=== PATIENT | female | born 1945 | race Caucasian/White ===

== ENCOUNTER 2016-09-27 10:14 | Inpatient (IN) ==
[2016-09-21 14:13] LABS: HEMATOCRIT 37.6 % (37.0-47.0); HEMOGLOBIN 12.2 g/dL (12.0-16.0); MCH 28.4 PG (27-31); MCHC 32.4 g/dL (33-37); MCV 87.6 FL (81-99); MPV 8.7 FL (7.4-10.4); RBC 4.29 XMIL (4.2-5.4)
[2016-09-21 14:43] LABS: AGAP 11; BUN 10 mg/dL (8-22); CALCIUM 9.3 mg/dL (8.8-10.2); CHLORIDE 101 mmol/L (98-107); COSMO 286; POTASSIUM 4.1 mmol/L (3.5-5.1); SODIUM 144 mmol/L (136-145); TCO2 32 mmol/L (25-35)
--- NOTE | 2016-09-21 15:44 | EKG Report ---
Test Performed on : 09/21/2016 1:53:55 PM Test Reason : PAT Blood Pressure : / mmHG Vent. Rate : 079 BPM Atrial Rate : 079 BPM P-R Int : 134 ms QRS Dur : 088 ms QT Int : 410 ms P-R-T Axes : 074 061 040 degrees QTc Int : 470 ms Normal sinus rhythm. Nonspecific ST and T wave abnormality Abnormal ECG No previous ECGs available Confirmed by Vishnu CALDERÓN, Eleazar Dye ([id number]) on 09/22/2016 9:14:11 AM
[2016-09-27] MEDS ORDERED: PEPCID ONE (11:06)
[2016-09-27] MEDS ORDERED: LR 1,000 ML ONE ×2 (11:06→15:54)
[2016-09-27] MEDS ORDERED: KEFZOL 1 GM/D5W 1 GM/50 ML IVPB ONE (11:06)
[2016-09-27] MEDS ORDERED: HEPARIN ONE ×3 (12:06→13:38)
[2016-09-27] MEDS ORDERED: KEFZOL ONE (12:06)
[2016-09-27] MEDS ORDERED: NS 2,000 ML ONE (12:07)
[2016-09-27] MEDS ORDERED: MARCAINE 0.25% PF/EPI 1:200,000 ONE (12:08)
[2016-09-27] MEDS ORDERED: QUELICIN (DOSE) ONE (12:19)
[2016-09-27] MEDS ORDERED: XYLOCAINE-MPF 2% ONE (12:19)
[2016-09-27] MEDS ORDERED: ZEMURON ONE (13:21)
[2016-09-27] MEDS ORDERED: EPHEDRINE ONE (14:02)
[2016-09-27] MEDS ORDERED: ROBINUL ONE (14:18)
[2016-09-27] MEDS ORDERED: NEOSTIGMINE ONE (14:21)
[2016-09-27] MEDS ORDERED: ZOFRAN ONE (14:22)
[2016-09-27] MEDS ORDERED: NS 1,000 ML ONE (14:55)
[2016-09-27] MEDS ORDERED: PROTAMINE SULFATE ONE (15:06)
--- NOTE | 2016-09-27 15:29 | OPERATIVE NOTE ---
PROCEDURE DATE: 09/27/2016 DATE OF SURGERY: 09/27/2016. PROCEDURE PERFORMED: Right femoral artery access with ultrasound guidance; left superficial femoral artery atherectomy with an H1 LS turbo hawk catheter (3 sites). SURGEON: Fermín Bautista MD. SORT OPERATIONS SUPERVISOR: THO Foster. PREOPERATIVE DIAGNOSIS: Left SFA serial stenoses with claudication. POSTOPERATIVE DIAGNOSIS: Left SFA serial stenoses with claudication. FINDINGS: There were 3 different sites of stenosis due to calcific plaque in the proximal SFA. The popliteal appeared to have adequate lumen and there was runoff trifurcation vessels. DESCRIPTION OF PROCEDURE: Satisfactory general anesthesia was achieved. Both groins and the left leg were prepped and draped in a sterile fashion. We imaged the right groin and identified the common femoral artery, accessed it with a Seldinger technique, passed the wire, followed by a 7- Turkish sheath. We then passed a Glidewire into the aorta, followed by Contra 2 catheter. We then engaged the left iliac, passed the guidewire down the left iliac. We then switched from a short 7 to a 45 cm 7-Turkish sheath. We first used the Glidewire, switched over to an Amplatz wire and then was eventually able to advance the 45 cm sheath to within 5 cm of the end. We shot an arteriogram revealing significant plaque at the takeoff of the SFA plaque, a few cm distal to this and one in the midthigh. The distal SFA and the popliteal appeared to have adequate lumen. We were able to switch then to a long stiff Glidewire. We were able to engage the SFA and pass the Glidewire down into the popliteal. We switched this to an 0.014 wire after using a long 5-Turkish catheter. We switched to the 0.014 Nitrex wire. We then used an H1 LS turbo hawk catheter and treated the most proximal stenosis right at the takeoff of the SFA. We treated it anterior, posterior and medial. We then treated the next stenosis a few centimeters distal to this the same way, anterior, posterior and medial, and then finally the last spot in the midthigh in all 4 quadrants. We went back and treated each one in addition, and then a completion arteriogram revealing improvement in each spot. We did shoot a completion arteriogram showing runoff down the runoff vessels past the knee into the trifurcation vessels. We then replaced the 0.014 wire with a 5-Turkish catheter followed by the long Glidewire. We removed the 45 cm sheath , then switched to a short 7, and then used a Mynx closure device to plug the hole. We did hold pressure until hemostasis was achieved. She has tolerated procedure satisfactorily. I failed to mention that 10,000 units of heparin were given during the procedure. The patient lost about 100 mL of blood. There was 105 mL of contrast used during the procedure. cc: Fermín Bautista MD MTDD
[2016-09-27] MEDS: MORPHINE ONE ×3 (15:44→15:55)
[2016-09-27] MEDS ORDERED: NS 1,000 ML IV SCH (17:05)
[2016-09-27] MEDS ORDERED: ZOFRAN IV PRN (17:05)
[2016-09-27 17:23] LABS: URINE MICRO REVIEW NEEDED? NO; URINE SOURCE CATH
[2016-09-27 17:43] LABS: BILIRUBIN URINE NEGATIVE (NEGATIVE); BLOOD URINE NEGATIVE (NEGATIVE); COLOR YELLOW; GLUCOSE URINE NEGATIVE (NEGATIVE); LEUKOCYTES URINE TRACE (NEGATIVE); NITRITE URINE POSITIVE (NEGATIVE); PH URINE 7.5; PROTEIN URINE TRACE mg/dL (NEGATIVE); TURBIDITY URINE CLEAR (CLEAR); UR EPITHELIAL CELLS <10 /HPF (<10); URINE BACTERIA 4+ /HPF; URINE RBC <10 /HPF (<10); URINE WBC <10 /HPF (<10); UROBILINOGEN URINE NORMAL (NORMAL)
[2016-09-27] MEDS: NEURONTIN PO SCH ×2 (18:11→20:01)
[2016-09-27] MEDS: FLEXERIL PO SCH (18:11)
[2016-09-27] MEDS: DESYREL PO SCH ×2 (20:01→22:07)
[2016-09-27] MEDS: PERIDEX MT SCH (20:01)
[2016-09-27] MEDS: NORCO-7.5 PO PRN (20:01)
[2016-09-27] MEDS: ZOCOR PO SCH (20:02)
[2016-09-27] MEDS: KLONOPIN PO SCH ×2 (20:02→22:07)
[2016-09-27] MEDS: BUPRENEX IV PRN (22:09)
[2016-09-28] MEDS: NORCO-7.5 PO PRN ×4 (00:36→20:02)
[2016-09-28] MEDS: PRILOSEC PO SCH (06:36)
[2016-09-28] MEDS ORDERED: FENTANYL ONE (07:09)
[2016-09-28] MEDS ORDERED: DIPRIVAN 1% ONE (07:09)
[2016-09-28] MEDS: ASPIRIN EC PO SCH ×2 (07:31→10:25)
[2016-09-28] MEDS: PERIDEX MT SCH ×3 (07:31→22:27)
[2016-09-28] MEDS: TOPROL XL PO SCH ×2 (07:32→10:26)
[2016-09-28] MEDS: GLUCOTROL PO SCH (07:32)
[2016-09-28] MEDS: NEURONTIN PO SCH ×5 (07:32→22:27)
[2016-09-28] MEDS: FLEXERIL PO SCH ×4 (07:32→18:10)
[2016-09-28] MEDS: ZOLOFT PO SCH ×2 (07:33→10:26)
[2016-09-28] MEDS: COZAAR PO SCH ×2 (07:33→10:27)
[2016-09-28] MEDS: LASIX PO SCH ×2 (07:33→10:26)
[2016-09-28] MEDS: BUPRENEX IV PRN ×2 (07:39→13:15)
[2016-09-28] MEDS: WELLBUTRIN SR PO SCH ×2 (07:40→10:25)
[2016-09-28 08:56] LABS: MANUAL DIFF NEEDED? NO
[2016-09-28 09:01] LABS: BASO% 0.2 % (0.0-0.8); EOS# 0.12 X1000 (0.0-0.7); HEMATOCRIT 33.7 % (37.0-47.0); HEMOGLOBIN 10.5 g/dL (12.0-16.0); IMM GRAN# 0.02 X1000 (0.0-0.04); IMM GRAN% 0.2 % (0.0-0.5); LYMPH# 2.65 X1000 (1.2-3.4); LYMPH% 21.4 % (20.5-51.1); MCH 28.7 PG (27-31); MCHC 31.2 g/dL (33-37); MCV 92.1 FL (81-99); MONO# 0.82 X1000 (0.11-0.59); MONO% 6.6 % (1.7-9.3); NEUT% 70.6 % (42.2-75.2); PLT 306 X1000 (130-400); RBC 3.66 XMIL (4.2-5.4)
[2016-09-28 09:17] LABS: AGAP 3; BUN 11 mg/dL (8-22); CALCIUM 8.6 mg/dL (8.8-10.2); CHLORIDE 102 mmol/L (98-107); COSMO 283; POTASSIUM 4.3 mmol/L (3.5-5.1); SODIUM 141 mmol/L (136-145); TCO2 36 mmol/L (25-35)
[2016-09-28] MEDS: KLONOPIN PO SCH ×2 (10:38→22:28)
[2016-09-28] MEDS: NS 1,000 ML IV SCH (16:07)
[2016-09-28] MEDS: DESYREL PO SCH (22:27)
[2016-09-28] MEDS: ZOCOR PO SCH (22:27)
[2016-09-29 06:01] LABS: MANUAL DIFF NEEDED? NO
[2016-09-29] MEDS: PRILOSEC PO SCH (06:22)
[2016-09-29] MEDS: NORCO-7.5 PO PRN (06:22)
[2016-09-29 06:23] LABS: BASO% 0.3 % (0.0-0.8); EOS# 0.12 X1000 (0.0-0.7); EOS% 1.1 % (0.0-10.0); HEMATOCRIT 31.4 % (37.0-47.0); HEMOGLOBIN 9.5 g/dL (12.0-16.0); IMM GRAN# 0.02 X1000 (0.0-0.04); IMM GRAN% 0.2 % (0.0-0.5); LYMPH# 1.97 X1000 (1.2-3.4); LYMPH% 17.7 % (20.5-51.1); MCH 28.3 PG (27-31); MCHC 30.3 g/dL (33-37); MCV 93.5 FL (81-99); MONO# 0.78 X1000 (0.11-0.59); MPV 9.3 FL (7.4-10.4); NEUT% 73.7 % (42.2-75.2); PLT 264 X1000 (130-400); RBC 3.36 XMIL (4.2-5.4)
[2016-09-29] MEDS ORDERED: KEFZOL 1 GM/D5W 1 GM/50 ML IVPB IV ONE (09:35)
[2016-09-29] MEDS: ZOLOFT PO SCH (10:30)
[2016-09-29] MEDS: KLONOPIN PO SCH ×2 (10:30→22:59)
[2016-09-29] MEDS: ASPIRIN EC PO SCH (10:30)
[2016-09-29] MEDS: COZAAR PO SCH (10:30)
[2016-09-29] MEDS: FLEXERIL PO SCH ×4 (10:30→18:16)
[2016-09-29] MEDS: GLUCOTROL PO SCH (10:30)
[2016-09-29] MEDS: TOPROL XL PO SCH (10:31)
[2016-09-29] MEDS: LASIX PO SCH (10:31)
[2016-09-29] MEDS: PERIDEX MT SCH ×2 (10:31→22:59)
[2016-09-29] MEDS: WELLBUTRIN SR PO SCH (10:31)
[2016-09-29] MEDS: NEURONTIN PO SCH ×5 (10:31→22:59)
--- NOTE | 2016-09-29 10:57 | Diag Imaging Result Doc PS360 ---
ANGIOGRAM/AORTA W/RUNOFF - 09/29/2016 INDICATION: right foot ischemia TECHNIQUE: Axial CT images were obtained after administering intravenous contrast. Three-dimensional angiographic images were generated. A CT dose reduction protocol was used. COMPARISON: 08/31/2016 FINDINGS: There is soft tissue edema over the right groin compatible with recent arterial access and seizure. There is complete occlusion of the mid right external iliac artery. The deep femoral artery is patent. There is complete occlusion of the entire superficial femoral artery. The popliteal artery and distal arteries reconstitute at the level of the abductor foramen. Presumably from deep femoral artery branches. IMPRESSION: Complete occlusions of the mid right external iliac artery and the entire right superficial femoral artery. Electronically signed by Vasile Maxwell 09/29/2016 10:55 AM
[2016-09-29] MEDS ORDERED: HEPARIN ONE ×2 (12:09→13:10)
[2016-09-29] MEDS ORDERED: NS 1,000 ML ONE (12:09)
[2016-09-29] MEDS ORDERED: XYLOCAINE-MPF 2% ONE ×2 (12:11)
[2016-09-29] MEDS ORDERED: DIPRIVAN 1% ONE (12:11)
[2016-09-29] MEDS ORDERED: QUELICIN (DOSE) ONE (12:16)
[2016-09-29] MEDS ORDERED: ZEMURON ONE (12:16)
[2016-09-29] MEDS ORDERED: DECADRON ONE (13:11)
[2016-09-29] MEDS ORDERED: ZOFRAN ONE (13:11)
[2016-09-29] MEDS ORDERED: KEFZOL ONE (13:43)
[2016-09-29] MEDS ORDERED: NS 500 ML ONE (13:43)
[2016-09-29] MEDS ORDERED: NEOSTIGMINE ONE (13:55)
[2016-09-29] MEDS ORDERED: ROBINUL ONE (13:56)
[2016-09-29 14:36] LABS: URINE MICRO REVIEW NEEDED? NO; URINE SOURCE CATH
[2016-09-29 14:40] LABS: BILIRUBIN URINE NEGATIVE (NEGATIVE); BLOOD URINE NEGATIVE (NEGATIVE); COLOR YELLOW; GLUCOSE URINE NEGATIVE (NEGATIVE); LEUKOCYTES URINE NEGATIVE (NEGATIVE); NITRITE URINE NEGATIVE (NEGATIVE); PROTEIN URINE TRACE mg/dL (NEGATIVE); TURBIDITY URINE CLEAR (CLEAR); UROBILINOGEN URINE NORMAL (NORMAL)
[2016-09-29] MEDS: MORPHINE ONE ×3 (14:40→14:49)
[2016-09-29 14:41] LABS: UR EPITHELIAL CELLS <10 /HPF (<10); URINE BACTERIA NEGATIVE /HPF; URINE RBC <10 /HPF (<10); URINE WBC <10 /HPF (<10)
[2016-09-29 14:43] LABS: SP GRAVITY URINE > 1.050
[2016-09-29] MEDS ORDERED: LMX 5 CREAM TOP PRN (15:07)
--- NOTE | 2016-09-29 15:19 | OPERATIVE NOTE ---
PROCEDURE DATE: 09/29/2016 PROCEDURES: 1. Right femoral artery thrombectomy. 2. Right external iliac artery thrombectomy. 3. Right common femoral endarterectomy. 4. Open right common iliac balloon angioplasty using an 8 x 4 balloon. 5. Right external iliac balloon angioplasty using an 8 x 4 balloon. SURGEON: Fermín Bautista MD. ORTHOPEDIC SPECIALIST: Jenae. PREOPERATIVE DIAGNOSIS: Right femoral and external iliac thrombosis. POSTOPERATIVE DIAGNOSIS: Right femoral and external iliac thrombosis, with right external iliac stenosis, right common femoral stenosis, and right superficial femoral artery occlusion. INDICATIONS: A 71-year-old, who had undergone a left leg atherectomy via a right femoral approach 2 days ago. She has developed pain and numbness in her foot and CTA shows thrombosis of her right external and common femoral arteries. DESCRIPTION OF PROCEDURE: Satisfactory general endotracheal anesthesia was achieved. The left groin, right groin, and right leg were prepped and draped in a sterile fashion. We made a vertical incision in the right groin, dissected down to the common femoral artery. We surrounded the SFA with a vessel loop, the deep femoral with a vessel loop, the common femoral with a vessel loop. Significant plaque was noted within the common femoral. The puncture site was noted in the superficial femoral. We gave the patient 10,000 units of heparin systemically. We felt a pulse in the common femoral. We clamped off the common femoral. It was difficult to clamp because of the posterior plaque. We incised the superficial femoral using the Stein scissors through the puncture site. There was some clot present. We extended it proximally and distally. We passed a 4 Mariaelena distally and it only went for about 10 cm and then stopped due to occlusion. We removed what clot was present. We removed the clot from the orifice of the deep femoral and good back bleeding was present. We passed the Mariaelena proximally and it would only go for about what seemed to be 20-25 cm and then stopped, and we removed what clot was present. The flow was not very vigorous. We then proceeded to do a femoral endarterectomy all the way up to the inguinal ligament. We could pass a 3 and a 4 dilator into the profunda and got good back bleeding. We then obtained a 7-Bahraini sheath and passed it into the artery. We shot a retrograde arteriogram. There appeared to be a stenosis in the external iliac artery. The common iliac appeared to be patent but the stent was present there and I could not tell for sure whether that was an issue or a problem. The guidewire went through that area and we decided to balloon it. We chose an 8 x 4 balloon, passed it up the common iliac and ballooned it for a minute. We pulled our sheath back and again ballooned the external iliac to improve the stenosis in the external iliac. This improved the flow but still it did not seem as vigorous as we would like. We obtained a 1 x 6 bovine patch and we then patched the site of the femoral endarterectomy. As we neared finishing of the patch we passed a 4 probe proximally and this seemed to dilate the external iliac somewhat and improved the flow. We attempted to pass a 5 but it would not go easily because of the calcium plaque. We did not force it. We finished the patch angioplasty. Flow was established. Two additional stitches achieved complete hemostasis of the patch angioplasty. This angioplasty was about 5.5 cm long. A good pulse was present within the patch angioplasty. Hemostasis was satisfactory. We irrigated out the wound with Kefzol-impregnated saline. We closed the subcutaneous tissue with 2 layers of 2-0 Polysorb. The skin was closed with carlos. A sterile dressing was applied. She tolerated it well, was sent to the recovery room in satisfactory condition. cc: Fermín Bautista MD
[2016-09-29] MEDS: NS 1,000 ML IV SCH (15:47)
[2016-09-29] MEDS: KEFZOL 1 GM/D5W 1 GM/50 ML IVPB IV SCH ×2 (15:48→18:41)
[2016-09-29] MEDS: LOVENOX SUBQ SCH (18:41)
[2016-09-29] MEDS: BUPRENEX IV PRN ×2 (19:47→22:58)
[2016-09-29] MEDS: DESYREL PO SCH (22:59)
[2016-09-29] MEDS: ZOCOR PO SCH (23:00)
[2016-09-30] MEDS: BUPRENEX IV PRN ×3 (02:37→18:14)
[2016-09-30] MEDS: LOVENOX SUBQ SCH ×2 (04:23→17:39)
[2016-09-30] MEDS: KEFZOL 1 GM/D5W 1 GM/50 ML IVPB IV SCH (04:23)
[2016-09-30 06:13] LABS: MANUAL DIFF NEEDED? NO
[2016-09-30] MEDS: PRILOSEC PO SCH (06:17)
[2016-09-30 06:21] LABS: BASO% 0.2 % (0.0-0.8); EOS# 0.03 X1000 (0.0-0.7); EOS% 0.2 % (0.0-10.0); HEMATOCRIT 25.3 % (37.0-47.0); HEMOGLOBIN 7.9 g/dL (12.0-16.0); IMM GRAN# 0.04 X1000 (0.0-0.04); IMM GRAN% 0.2 % (0.0-0.5); LYMPH# 1.48 X1000 (1.2-3.4); LYMPH% 9.1 % (20.5-51.1); MCH 28.6 PG (27-31); MCHC 31.2 g/dL (33-37); MCV 91.7 FL (81-99); MONO# 0.99 X1000 (0.11-0.59); MONO% 6.1 % (1.7-9.3); MPV 9.5 FL (7.4-10.4); NEUT% 84.2 % (42.2-75.2); PLT 274 X1000 (130-400); RBC 2.76 XMIL (4.2-5.4)
[2016-09-30 06:41] LABS: AGAP 12; BUN 9 mg/dL (8-22); CALCIUM 8.3 mg/dL (8.8-10.2); CHLORIDE 100 mmol/L (98-107); COSMO 280; POTASSIUM 3.8 mmol/L (3.5-5.1); SODIUM 139 mmol/L (136-145); TCO2 27 mmol/L (25-35)
--- NOTE | 2016-09-30 07:57 | PROGRESS NOTE ---
DATE: 09/30/2016 SUBJECTIVE: Feels okay. No major complaints over the right groin and upper leg incision. PHYSICAL EXAMINATION: Heart has been in the 90s to low 100s. Pulse 98.5, blood pressure 115/48. General: She is alert. Right thigh with some ecchymosis here. Her feet bilaterally are cool, but they have normal capillary refill. Doppler exam shows on the right a posterior tibial signal that is strong. Difficult to find an anterior tibial signal and, on the left, she has an anterior and posterior tibial signal. ASSESSMENT AND PLAN: A 71-year-old female with bilateral peripheral arterial disease who had an endovascular procedure on the left lower extremity and required an open thromboembolectomy of the right leg. Overall, she is doing okay. Her feet are perfused. We will continue to monitor her. She is on a b.i.d. Lovenox and aspirin. We will work on her mobility today. Diet as tolerated. cc: MD Fermín Montoya MD
[2016-09-30] MEDS: PERIDEX MT SCH (10:30)
[2016-09-30] MEDS: WELLBUTRIN SR PO SCH (10:30)
[2016-09-30] MEDS: ZOLOFT PO SCH (10:30)
[2016-09-30] MEDS: LASIX PO SCH (10:30)
[2016-09-30] MEDS: KLONOPIN PO SCH (10:30)
[2016-09-30] MEDS: FLEXERIL PO SCH ×3 (10:31→17:39)
[2016-09-30] MEDS: ASPIRIN EC PO SCH (10:31)
[2016-09-30] MEDS: GLUCOTROL PO SCH (10:31)
[2016-09-30] MEDS: NEURONTIN PO SCH ×3 (10:31→17:39)
[2016-09-30] MEDS: COZAAR PO SCH (10:31)
[2016-09-30] MEDS: TOPROL XL PO SCH (10:31)
[2016-09-30] MEDS: NS 1,000 ML IV SCH (15:47)
[2016-09-30] MEDS: NORCO-10 PO PRN (15:47)
[2016-10-01] MEDS: DESYREL PO SCH (02:13)
[2016-10-01] MEDS: NEURONTIN PO SCH ×5 (02:14→23:01)
[2016-10-01] MEDS: KLONOPIN PO SCH ×3 (02:14→23:02)
[2016-10-01] MEDS: ZOCOR PO SCH ×2 (02:15→23:02)
[2016-10-01] MEDS: PERIDEX MT SCH ×3 (02:15→23:05)
[2016-10-01] MEDS: PRILOSEC PO SCH (06:27)
[2016-10-01] MEDS: LOVENOX SUBQ SCH ×2 (06:27→17:36)
--- NOTE | 2016-10-01 09:04 | PROGRESS NOTE ---
DATE: 10/01/2016 SUBJECTIVE: Had some confusion last night that kind of waxed and waned. It seemed to be related to her IV pain medication which we stopped and had significant improvement. Continued to have some pain in her right leg. No focal neurologic symptoms. Her main complaint is some skin avulsions from her pressure dressing that she had originally. PHYSICAL EXAMINATION: No fevers, pulse 60, blood pressure 111/45, oxygen saturation 97% on 4 L. Right groin ecchymoses improving. Her feet are warm with normal capillary refill. There are not nonpalpable pulses but she continues to have stable Doppler exam per the nursing staff. She has got some superficial skin abrasions or avulsions on her right hip and gluteal area with no signs of infection. LABORATORY DATA: No new labs this morning. ASSESSMENT AND PLAN: A 71-year-old female, status post left lower extremity atherectomy complicated by right side thrombosis with acute ischemia, status post thromboembolectomy and end arterectomy. We will continue to monitor her. I have ordered some Silvadene to treat her wounds on her right hip. She will need to increase her mobility, out of bed to the chair and ambulate as much as possible. Otherwise, we will continue to hold her intravenous medicine as this seemed to be contributing to some of her delirium. She has no focal neurologic deficits on exam. We will continue to follow along. cc: MD Fermín Monotya MD
[2016-10-01] MEDS: GLUCOTROL PO SCH (10:14)
[2016-10-01] MEDS: COZAAR PO SCH (10:15)
[2016-10-01] MEDS: ZOLOFT PO SCH (10:15)
[2016-10-01] MEDS: TOPROL XL PO SCH (10:15)
[2016-10-01] MEDS: ASPIRIN EC PO SCH (10:15)
[2016-10-01] MEDS: LASIX PO SCH (10:15)
[2016-10-01] MEDS: WELLBUTRIN SR PO SCH (10:16)
[2016-10-01] MEDS: FLEXERIL PO SCH ×3 (10:16→17:37)
[2016-10-01] MEDS: NORCO-10 PO PRN ×3 (10:25→17:37)
[2016-10-01] MEDS: NS 1,000 ML IV SCH (14:53)
[2016-10-02] MEDS: DESYREL PO SCH ×2 (00:35→22:00)
[2016-10-02] MEDS: NORCO-10 PO PRN ×4 (04:20→16:05)
[2016-10-02] MEDS: LOVENOX SUBQ SCH ×2 (04:20→16:05)
[2016-10-02] MEDS: PRILOSEC PO SCH (06:41)
[2016-10-02] MEDS: NEURONTIN PO SCH ×4 (08:13→21:59)
[2016-10-02] MEDS: COZAAR PO SCH (08:13)
[2016-10-02] MEDS: ASPIRIN EC PO SCH (08:14)
[2016-10-02] MEDS: WELLBUTRIN SR PO SCH (08:14)
[2016-10-02] MEDS: TOPROL XL PO SCH (08:14)
[2016-10-02] MEDS: KLONOPIN PO SCH ×2 (08:14→21:59)
[2016-10-02] MEDS: GLUCOTROL PO SCH (08:14)
[2016-10-02] MEDS: ZOLOFT PO SCH (08:14)
[2016-10-02] MEDS: LASIX PO SCH (08:14)
[2016-10-02] MEDS: PERIDEX MT SCH ×2 (08:15→22:00)
[2016-10-02] MEDS: FLEXERIL PO SCH ×3 (08:15→16:05)
[2016-10-02 10:20] LABS: MANUAL DIFF NEEDED? NO
[2016-10-02 10:32] LABS: LYMPH% 19.6 % (20.5-51.1)
[2016-10-02 10:34] LABS: BASO% 0.4 % (0.0-0.8); EOS# 0.31 X1000 (0.0-0.7); EOS% 2.9 % (0.0-10.0); HEMATOCRIT 22.5 % (37.0-47.0); HEMOGLOBIN 6.9 g/dL (12.0-16.0); IMM GRAN# 0.04 X1000 (0.0-0.04); IMM GRAN% 0.4 % (0.0-0.5); LYMPH# 2.11 X1000 (1.2-3.4); MCH 28.5 PG (27-31); MCHC 30.7 g/dL (33-37); MONO% 7.4 % (1.7-9.3); MPV 9.7 FL (7.4-10.4); NEUT% 69.3 % (42.2-75.2); PLT 253 X1000 (130-400); RBC 2.42 XMIL (4.2-5.4)
[2016-10-02 10:54] LABS: AGAP 13; BUN 9 mg/dL (8-22); CHLORIDE 102 mmol/L (98-107); COSMO 278; POTASSIUM 3.2 mmol/L (3.5-5.1); SODIUM 141 mmol/L (136-145); TCO2 26 mmol/L (25-35)
[2016-10-02] MEDS: NS 1,000 ML IV SCH (19:37)
[2016-10-02] MEDS: ZOCOR PO SCH (22:00)
[2016-10-03] MEDS: NORCO-10 PO PRN ×5 (01:26→21:47)
[2016-10-03] MEDS: LOVENOX SUBQ SCH ×2 (05:12→16:07)
[2016-10-03] MEDS: PRILOSEC PO SCH ×2 (05:13→05:59)
[2016-10-03] MEDS: PERIDEX MT SCH ×2 (08:45→21:43)
[2016-10-03] MEDS: TOPROL XL PO SCH (08:46)
[2016-10-03] MEDS: WELLBUTRIN SR PO SCH (08:46)
[2016-10-03] MEDS: KLONOPIN PO SCH (08:46)
[2016-10-03] MEDS: COZAAR PO SCH (08:46)
[2016-10-03] MEDS: GLUCOTROL PO SCH (08:47)
[2016-10-03] MEDS: NEURONTIN PO SCH ×4 (08:47→21:43)
[2016-10-03] MEDS: LASIX PO SCH (08:47)
[2016-10-03] MEDS: ZOLOFT PO SCH (08:47)
[2016-10-03] MEDS: FLEXERIL PO SCH ×3 (08:47→16:07)
[2016-10-03] MEDS: ASPIRIN EC PO SCH (08:48)
[2016-10-03] MEDS: NS 1,000 ML IV SCH (16:04)
--- NOTE | 2016-10-03 18:37 | PROGRESS NOTE ---
DATE: 10/03/2016 SUBJECTIVE: Some confusion overnight per the , she is disoriented, consistent with delirium or sundowner syndrome. OBJECTIVE: Temperature is 98 degrees, no fevers overnight, pulse 86, blood pressure 118/79, O2 saturation 94% on room air. General: Seems alert and oriented to person, place but does at times speak inappropriately but quickly corrects herself. There is no focal neurologic deficits. Right groin incisions intact there is some serosanguineous drainage. Left foot is warm with normal capillary refill. The right foot and is neurologically she is able to move her toes and dorsi and plantar flex but she does have some diminished sensation and is quite cool but not frankly cyanotic. LABS: No new labs today. ASSESSMENT/PLAN: 71-year-old female status post left-sided atherectomy complicated by acute thrombosis of the right leg requiring open thrombectomy and endarterectomy. Overall she is doing okay. She has some delirium here. Mobility is increasing but will work on regulating her day, night cycle limiting medication that can cause confusion and letting her rest at night. Dr. Bautista should be back in next 24 to 48 hours. Make plans for further surgery if required to optimize perfusion right lower extremity. Had a long discussion with the regarding this. cc: MD Fermín Montoya MD
[2016-10-03] MEDS: DESYREL PO SCH (21:43)
[2016-10-03] MEDS: ZOCOR PO SCH (21:43)
[2016-10-04] MEDS: NORCO-10 PO PRN ×5 (03:47→21:10)
[2016-10-04] MEDS: PRILOSEC PO SCH ×2 (05:39→07:52)
[2016-10-04] MEDS: LOVENOX SUBQ SCH (05:39)
[2016-10-04] MEDS: PERIDEX MT SCH ×2 (08:00→21:10)
[2016-10-04] MEDS: ZOLOFT PO SCH (08:00)
[2016-10-04] MEDS: TOPROL XL PO SCH (08:00)
[2016-10-04] MEDS: ASPIRIN EC PO SCH (08:00)
[2016-10-04] MEDS: FLEXERIL PO SCH ×3 (08:01→17:31)
[2016-10-04] MEDS: COZAAR PO SCH (08:01)
[2016-10-04] MEDS: GLUCOTROL PO SCH (08:01)
[2016-10-04] MEDS: NEURONTIN PO SCH ×4 (08:01→21:10)
[2016-10-04] MEDS: WELLBUTRIN SR PO SCH (08:01)
[2016-10-04] MEDS: LASIX PO SCH (08:01)
[2016-10-04] MEDS: NS 1,000 ML IV SCH (17:30)
[2016-10-04] MEDS: DESYREL PO SCH (21:10)
[2016-10-04] MEDS: ZOCOR PO SCH (21:10)
[2016-10-04 21:35] LABS: URINE SOURCE VOIDED
[2016-10-04 21:39] LABS: BILIRUBIN URINE NEGATIVE (NEGATIVE); BLOOD URINE NEGATIVE (NEGATIVE); COLOR YELLOW; GLUCOSE URINE NEGATIVE (NEGATIVE); LEUKOCYTES URINE NEGATIVE (NEGATIVE); NITRITE URINE NEGATIVE (NEGATIVE); PROTEIN URINE TRACE mg/dL (NEGATIVE); SP GRAVITY URINE 1.018; TURBIDITY URINE CLEAR (CLEAR); URINE MICRO REVIEW NEEDED? YES; UROBILINOGEN URINE 2 mg/dL (NORMAL)
[2016-10-04 21:42] LABS: UR EPITHELIAL CELLS <10 /HPF (<10); URINE BACTERIA NEGATIVE /HPF; URINE CASTS NONE SEEN; URINE CRYSTALS NONE SEEN; URINE RBC <10 /HPF (<10); URINE SMALL ROUND CELLS NONE SEEN; URINE WBC <10 /HPF (<10)
[2016-10-05] MEDS: NORCO-10 PO PRN ×3 (01:39→12:16)
[2016-10-05] MEDS: PRILOSEC PO SCH ×2 (04:58→06:38)
[2016-10-05 06:58] LABS: MANUAL DIFF NEEDED? NO
[2016-10-05 07:18] LABS: BASO% 0.2 % (0.0-0.8); EOS# 0.18 X1000 (0.0-0.7); EOS% 1.9 % (0.0-10.0); HEMATOCRIT 26.1 % (37.0-47.0); HEMOGLOBIN 8.4 g/dL (12.0-16.0); IMM GRAN# 0.03 X1000 (0.0-0.04); IMM GRAN% 0.3 % (0.0-0.5); LYMPH# 1.64 X1000 (1.2-3.4); LYMPH% 17.3 % (20.5-51.1); MCH 28.9 PG (27-31); MCHC 32.2 g/dL (33-37); MCV 89.7 FL (81-99); MONO# 0.73 X1000 (0.11-0.59); MONO% 7.7 % (1.7-9.3); MPV 10.2 FL (7.4-10.4); NEUT% 72.6 % (42.2-75.2); PLT 291 X1000 (130-400); RBC 2.91 XMIL (4.2-5.4)
[2016-10-05 07:24] LABS: AGAP 11; BUN 7 mg/dL (8-22); CALCIUM 8.6 mg/dL (8.8-10.2); CHLORIDE 101 mmol/L (98-107); COSMO 282; POTASSIUM 2.7 mmol/L (3.5-5.1); SODIUM 142 mmol/L (136-145); TCO2 30 mmol/L (25-35)
[2016-10-05] MEDS: PERIDEX MT SCH (08:42)
[2016-10-05] MEDS: LASIX PO SCH (08:43)
[2016-10-05] MEDS: ASPIRIN EC PO SCH (08:43)
[2016-10-05] MEDS: ZOLOFT PO SCH (08:44)
[2016-10-05] MEDS: NEURONTIN PO SCH ×2 (08:44→14:04)
[2016-10-05] MEDS: WELLBUTRIN SR PO SCH (08:44)
[2016-10-05] MEDS: COZAAR PO SCH (08:44)
[2016-10-05] MEDS: GLUCOTROL PO SCH (08:44)
[2016-10-05] MEDS: TOPROL XL PO SCH (08:44)
[2016-10-05] MEDS: FLEXERIL PO SCH ×2 (08:45→14:04)
[2016-10-05] MEDS ORDERED: PLAVIX PO SCH (09:00)
[2016-10-05 11:06] VITALS: BP 144/63
[2016-10-05] MEDS: POTASSIUM CHLORIDE 20 MEQ/SWI 20 MEQ/100 ML IVPB IV SCH ×2 (11:25→14:02)
--- NOTE | 2016-10-11 16:01 | DISCHARGE SUMMARY ---
ADMISSION DATE: 09/27/2016 DISCHARGE DATE: 10/05/2016 PRIMARY DISCHARGE DIAGNOSIS: Claudication in both lower extremities with increased pain on the left side. PRIMARY PROCEDURE: Left superficial femoral atherectomy via right femoral approach on 09/27/2016 and then she underwent a right femoral artery thrombectomy, right external iliac artery thrombectomy, right common femoral endarterectomy, open right common iliac balloon angioplasty, and right external artery balloon angioplasty on 09/29/2016. HOSPITAL COURSE: This is a 71-year-old lady with significant vascular disease who had been complaining about her legs with more pain on the left even though her lower extremity arterial study suggested more disease on the right. We admitted her on the and did the superficial femoral atherectomy via right femoral approach. Postoperatively she seemed to have increased ischemia of her right leg whereas her left leg was good with good Doppler flow. Because of the ischemia of her right leg, numbness and discoloration we did a CTA which suggested thrombosis of her external iliac and femoral artery. We, therefore, explored her right groin to femoral artery and we thrombectomized the right external iliac and femoral arteries. We endarterectomized the right femoral artery. The SFA was occluded. There was good outflow via the deep femoral. We ballooned her common iliac and external iliac to be certain inflow was adequate. Postoperatively we kept her on Lovenox in order to maintain adequate flow. Her course was complicated by some tape zayas on both buttocks from the pressure dressings that we applied from the . This was treated with lidocaine ointment on op sites. Also her course was complicated with some delirium which was felt to be related to her pain medication and probably early-onset dementia. After the procedure on the she did improve. Her perfusion to her right foot improved with increased color and posterior tibial Doppler flow. We felt it was adequate to allow her to go home and see how she would perform and function with her right leg as it was. The left leg continued to do well post-atherectomy. So on 10/05 which was postop day 6, she was discharged to return to the office for staple removal and re-evaluation of her right leg. She will be maintained on platelet inhibition for her both legs. cc: Fermín Bautista MD
== END 2016-10-05 16:27 | disposition home health service (06) ==
LOC: 4N 10:14 → OR 10:14
PROVIDERS: ADMIT Surgery; ATTEND Surgery